=== PATIENT | male | born 1985 | race Caucasian/White ===

== ENCOUNTER 2023-02-08 08:58 | Emergency (ER) | payer OTHER ==
[~2023-02-08] VITALS: Ht 185.4 cm; Wt 90.9 kg
[2023-02-08 09:04] VITALS: TEMP 98.8
[2023-02-08] MEDS ORDERED: CEPH-558 PO (09:54)
[2023-02-08 10:26] VITALS: BP 130/84; PULSE 72; RESP 18
== END 2023-02-08 10:49 | disposition home or self-care (01) ==
LOC: EMS 09:04
DX: J34.0 Abscess, furuncle and carbuncle of nose (principal); F17.210 Nicotine dependence, cigarettes, uncomplicated; Z90.49 Acquired absence of other specified parts of digestive tract
CPT/HCPCS: 99283; 99285